=== PATIENT | male | born 1970 | race Caucasian/White ===

== ENCOUNTER 2017-12-10 07:10 | Day surgery (SDC) | payer OTHER ==
--- NOTE | 2017-12-10 07:29 | ED ---
Abdominal Pain/Male - HPI Summary HPI Summary: This pt is a 47 y/o male presenting to [facility] c/o sudden onset of right sided abd pain since 01:00 today. Pt reports his abd pain woke him up at 01:00 this morning. Pt states his pain is waxing and waning, currently rates it 7/10 in severity. He describes his abd pain as sharp. Denies fever, chills, nausea, vomiting, diarrhea, constipation, chest pain. His last bowel movement was yesterday afternoon without any difficulties or problems. Pt notes only SOB with worsening pain. He denies having pain similar to this in the past. Denies any past abdominal surgeries. Denies any PMHx. Pt does not take any medications on a daily basis. No tobacco or drug use. He endorses some alcohol use. - History of Current Complaint Chief Complaint: EDAbdPain Stated Complaint: ABD PAIN Hx Obtained From: Patient Onset/Duration: Sudden Onset, Lasting Hours, Still Present Timing: Lasting Hours Severity Currently: Moderate Pain Intensity: 7 Pain Scale Used: 0-10 Numeric Location: Other - right sided abd pain Radiates: No Aggravating Factor(s): Nothing Alleviating Factor(s): Nothing Associated Signs And Symptoms: Positive: Other - POS: SOB only with worsening pain. Negative: Fever, Chest Pain, Constipation, Nausea, Vomiting, Diarrhea - Allergies/Home Medications Allergies/Adverse Reactions: Allergies Allergy/AdvReac Type Severity Reaction Status Date / Time No Known Allergies Allergy Verified 12/10/17 07:14 PMH/Surg Hx/FS Hx/Imm Hx Endocrine/Hematology History: Denies: Hx Diabetes Cardiovascular History: Denies: Hx Hypertension Infectious Disease History: No Infectious Disease History: Denies: Traveled Outside the [place] in Last 30 Days - Family History Family History: breast cancer. mother with ovarian cancer - Social History Alcohol Use: Occasionally Substance Use Type: Reports: None Smoking Status (MU): Never Smoked Tobacco Review of Systems Negative: Fever, Chills Negative: Chest Pain Negative: Shortness Of Breath Positive: Abdominal Pain. Negative: Vomiting, Diarrhea, Nausea, Other - constipation All Other Systems Reviewed And Are Negative: Yes Physical Exam - Summary Physical Exam Summary: VITAL SIGNS: Reviewed. GENERAL: Patient is a well-developed and nourished male who is lying comfortable in the stretcher. Patient is not in any acute respiratory distress. HEAD AND FACE: Normocephalic and atraumatic. EYES: PERRLA, EOMI x 2, No injected conjunctiva. EARS: Hearing grossly intact. Ear canals and tympanic membranes are WNL. MOUTH: Oropharynx within normal limits. NECK: Supple, trachea is midline, no adenopathy, no JVD. CHEST: Symmetric, no tenderness at palpation LUNGS: Clear to auscultation bilaterally. No wheezing or crackles. CVS: RRR, S1 and S2 present, no murmurs or gallops appreciated. ABDOMEN: Soft, RUQ tenderness. No signs of distention. Positive bowel sounds. No rebound, no guarding, and no masses palpated. No abdominal bruit or pulsations. EXTREMITIES: FROM in all major joints, no edema, no cyanosis or clubbing. NEURO: Alert and oriented x 3. No acute neurological deficits. Speech is normal. SKIN: Dry and warm Triage Information Reviewed: Yes Vital Signs On Initial Exam: Initial Vitals Temp Pulse Resp BP Pulse Ox 98 F 70 16 142/92 99 12/10/17 07:12 12/10/17 07:12 12/10/17 07:12 12/10/17 07:12 12/10/17 07:12 Vital Signs Reviewed: Yes Diagnostics - Vital Signs Vital Signs Temp Pulse Resp BP Pulse Ox 12/10/17 07:12 98 F 70 16 142/92 99 - Laboratory Result Diagrams: 12/10/17 07:51 12/10/17 07:51 Lab Statement: Any lab studies that have been ordered have been reviewed, and results considered in the medical decision making process. - Ultrasound No standard instances Ultrasound Interpretation Completed By: Radiologist Summary of Ultrasound Findings: Gallbladder US IMPRESSION: Enlarged echogenic liver consistent with hepatic steatosis. Gallstone in the neck of the gallbladder without pericholecystic fluid. Dr. Acuna has reviewed this report. - EKG 07:59 Cardiac Rate: Bradycardia - at 59 bpm EKG Rhythm: Sinus Bradycardia Summary of EKG Findings: No ST elevations. Inverted T wave in aVL. Re-Evaluation - Re-Evaluation First Eval Re-Evaluation Time: 09:24 Change: Improved Comment: Pt is feeling better. Pain is rated 3 or 4 out of 10. No nausea or vomiting. Second Eval Re-Evaluation Time: 10:20 Comment: Dr. Poe will admit pt to surgery. Abdominal Pain Fem Course/Dx - Course Assessment/Plan: This pt is a 47 y/o male presenting to [facility] ED c/o sudden onset of abd pain since 01:00 today. Pt reports his abd pain woke him up at 01:00 this morning. Pt states his pain is waxing and waning, currently rates it 7/10 in severity. He describes his abd pain as sharp. Denies fever, chills, nausea, vomiting, diarrhea, constipation, chest pain. His last bowel movement was yesterday afternoon without any difficulties or problems. Pt notes only SOB with worsening pain. He denies having pain similar to this in the past. Denies any past abdominal surgeries. Denies any PMHx. Pt does not take any medications on a daily basis. No tobacco or drug use. He endorses some alcohol use. Blood work without any significant abnormality except for white blood cell count of 12.2, glucose 122, CRP is normal and LFTs are normal. Right upper quadrant ultrasound impression: Enlarged echogenic liver consistent with hepatic steatosis. Gallstones in the neck of the gallbladder without pericholecystic fluid. In the ED course the patient was given IV fluids, Zofran for nausea and morphine for the pain. After these medications he reports that the pain is only 3-4 out of 10, however he still has some right upper quadrant tenderness. I discussed the case with Dr. Poe, surgeon, who will consult for this patient. After his assessment he accepted the patient for admission for possible cholecystectomy. The patient continues to be hemodynamically stable. Patient is alert and oriented 3. - Diagnoses Differential Diagnosis/HQI/PQRI: Gall Bladder Disease, Hepatitis, Urinary Tract Infection Provider Diagnoses: Cholecystitis - Provider Notifications Discussed Care Of Patient With: Tommy Poe Time Discussed With Above Provider: 09:27 Instructed by Provider To: Other - I discussed with Dr. Poe, surgeon, who will come see the pt in the ED. Discharge - Sign-Out/Discharge Documenting (check all that apply): Patient Departure - Admit to [facility] surgery All imaging exams completed and their final reports reviewed: Yes - Discharge Plan Condition: Stable Disposition: ADMITTED TO [facility] - Billing Disposition and Condition Condition: STABLE Disposition: Admitted to [facility] - Attestation Statements Document Initiated by Scribe: Yes Documenting Scribe: Barbara Manzanares Provider For Whom Scribe is Documenting (Include Credential): Jarvis Acuna MD Scribe Attestation: I, Barbara Manzanares, scribed for Jarvis Acuna MD on 12/10/17 at 1819. Scribe Documentation Reviewed: Yes Provider Attestation: The documentation as recorded by the Barbara more accurately reflects the service I personally performed and the decisions made by me, Jarvis Acuna MD
[2017-12-10] MEDS ORDERED: Ondansetron INJ* 2 MG/ML VIAL IV ONE (07:37)
[2017-12-10] MEDS ORDERED: Morphine INJ* 4 MG/ML 1 ML SYRINGE (NEW SYRINGE VERSION) IV ONE (07:37)
[2017-12-10 08:07] LABS: ABS Basophils 0.1 10^3/ul (0-0.2); ABS Eosinophils 0 10^3/ul (0-0.6); ABS Lymphocytes 0.8 10^3/ul (1.0-4.8); ABS Monocytes 0.5 10^3/ul (0-0.8); ABS Neutrophils 10.8 10^3/ul (1.5-7.7); ABS Nucleated RBC 0 10^3/ul; Eosinophil % 0.1 % (0-6); Hematocrit 48 % (42-52); Hemoglobin 16.6 g/dl (14.0-18.0); Lymphocyte % 6.2 % (25-47); Mean Corpuscular HGB Conc 35 g/dl (31-36); Mean Corpuscular Hemoglobin 30 pg (27-31); Mean Corpuscular Volume 87 fL (80-94); Nucleated Red Blood Cells % 0.1; Platelet Count 253 10^3/ul (150-450); Red Blood Count 5.52 10^6/ul (4.00-5.40); Red Cell Distribution Width 13 % (10.5-15); White Blood Count 12.2 10^3/ul (3.5-10.8)
[2017-12-10 08:16] LABS: EGFR Non-African American 66.5 (>60)
--- NOTE | 2017-12-10 09:19 | RAD ---
Indication: Right upper quadrant pain. Real-time sonography of the right upper quadrant was performed. Liver is mildly enlarged measuring 18.5 cm in length. It is diffusely increased in echogenicity consistent with hepatic steatosis.No intrahepatic duct dilatation is noted. The gallbladder demonstrates gallstones in the neck. No pericholecystic fluid or wall thickening is noted. The common duct measures up to 0.4 cm. The right kidney measures 11.4 x 5.0 x 5.9 cm with no hydronephrosis. The pancreas head, neck and proximal body demonstrate no mass or pancreatic duct dilatation. Aorta and inferior vena cava are unremarkable. IMPRESSION: Enlarged echogenic liver consistent with hepatic steatosis. Gallstone in the neck of the gallbladder without pericholecystic fluid.
[2017-12-10] MEDS ORDERED: Morphine INJ** 4 MG/ML 1 ML CARPUJECT IV PRN (10:32)
[2017-12-10] MEDS ORDERED: Ondansetron INJ* 2 MG/ML VIAL IV PRN (10:33)
[2017-12-10] MEDS ORDERED: ceFAZolin 2 GM PREMIX in ORs 2 GM/50 ML BAG IVPB ONE ×2 (10:37→12:51)
--- NOTE | 2017-12-10 10:59 | HP ---
AMENDED REPORT NOW INCLUDES DESIGNATED COSIGNER CC: Lelo Lopez NP, [facility]* DATE OF ADMISSION: 12/10/2017. The patient was seen for initial evaluation in the ED. ATTENDING SURGEON: Dr. Tommy Poe * (NAVIN Rich dictating). CHIEF COMPLAINT: Abdominal pain. HISTORY OF PRESENT ILLNESS: This is a generally healthy, 47-year-old male who was awakened this morning at 1 o'clock with severe epigastric and right upper quadrant pain. He describes the pain as sharp with peaks and associated pressure, as well as nausea, though no vomiting. He denies fever or chills. Pain at its peak was as high as 10/10 and at present is down to 4 to 5/10 after one dose of Morphine 4 mg. He has not had any prior similar symptoms. He he had a normal bowel movement yesterday. He did take some Pepto Bismol with no relief. There is no known family history of gallbladder disease. He has not had any prior abdominal surgeries. He states he has not noticed any changes in his urine. PAST MEDICAL HISTORY: He is obese. No significant past or current medical problems reported. PAST SURGICAL HISTORY: His only previous surgery is dental work with no complications noted. CURRENT MEDICATIONS: None, including [id number] and supplements. DRUG ALLERGIES: None known. FAMILY HISTORY: Negative for anesthesia problems, bleeding or clotting disorders. SOCIAL HISTORY: The patient is and his is present. He works as a dedicated intermodal truck driver and deliverer. He quit smoking five years ago. He drinks on average one drink per day. He denies any other recreational drug use. REVIEW OF SYSTEMS: General: No recent constitutional symptoms or acute illnesses other than per the HPI. His weight has been stable. HEENT: No problems reported, other than dry mouth. Cardiovascular: No chest pain, palpitations, history of heart murmur. Respiratory: No history of asthma, chronic cough, or shortness of breath. GI: As above per HPI. : No additional symptoms reported. Endocrine: No diabetes or thyroid dysfunction. Remainder of review of systems is negative. PHYSICAL EXAMINATION GENERAL: Well-nourished, somewhat obese male in no acute distress. SKIN: Warm and dry, no suspicious rashes or lesions. VITAL SIGNS: Height 6'2", weight 290 pounds, BMI 37. Temperature 98, blood pressure 131/83, pulse 65, respirations 16, room air saturation 96 percent. HEENT: Pupils equal and round, reactive. EOM's intact. No conjunctival pallor or scleral icterus. Oropharynx: Teeth in good repair. No intraoral lesions. Mucus membranes slightly dry. NECK: No lymphadenopathy, thyromegaly, or masses. LUNGS: Clear to auscultation. No wheezes. HEART: Regular rate and rhythm. No murmur noted. ABDOMEN: Bowel sounds present, but somewhat hypoactive. Possibly mildly distended. Soft with moderate tenderness in the right upper quadrant with positive Mayes sign. No palpable masses or organomegaly, though exam is limited by body habitus and tenderness. No palpable groin hernias. BACK: No spinous process or CVA tenderness. EXTREMITIES: No edema. GENITALIA: Not otherwise examined. RECTAL: Not done. NEUROLOGIC: Grossly intact. LABORATORY DATA: Laboratory reviewed, including mildly elevated white blood cell count at 12,200 with left shift. His chemistries are essentially normal, including CMP, amylase, lipase, and CRP. His glucose was 122, lactic acid is normal at 1.9. Ultrasound of the right upper quadrant does show gallstones as well as mild hepatomegaly and mild fatty changes. There is no gallbladder wall thickening or pericholecystic fluid. The common bile duct is normal at 0.4 cm. IMPRESSION: Acute biliary colic with persistent pain. PLAN: Admission for pain control and IV hydration; likely cholecystectomy later today pending review of findings with the attending surgery, Dr. Poe. NAVIN RICH [id number]/[facility] #: [id number] MTDSharad
[2017-12-10] MEDS ORDERED: Bupivacaine 0.25% W/EPI* 10 ML SDV ONE (12:36)
[2017-12-10] MEDS ORDERED: ceFAZolin 1 GM in Dextrose (*) 1 GM/50 ML BAG IVPB ONE (12:51)
[2017-12-10] MEDS ORDERED: Midazolam* 1 MG/ML 2 ML VIAL (2 MG) ONE (13:19)
[2017-12-10] MEDS ORDERED: fentaNYL* 50 MCG/ML 2 ML VIAL (100 MCG VIAL) ONE ×2 (13:19→14:47)
[2017-12-10] MEDS ORDERED: Dexamethasone IV* 4 MG/ML 1 ML (4 MG) ONE (13:46)
[2017-12-10] MEDS ORDERED: Ondansetron INJ* 2 MG/ML VIAL ONE (13:46)
[2017-12-10] MEDS ORDERED: Propofol* 10 MG/ML 20 ML BTL IV PUSH ONE (13:46)
[2017-12-10] MEDS ORDERED: Succinylcholine* 20 MG/ML 10 ML VIAL ONE (13:46)
[2017-12-10] MEDS ORDERED: Phenylephrine INJ* 10 MG/ML 1 ML VIAL (10 MG) ONE (13:46)
[2017-12-10] MEDS ORDERED: Lidocaine 2% PF * 5 ML VIAL ONE (13:46)
[2017-12-10] MEDS ORDERED: EPHEDrine (Pressors)* 50 MG/ML VIAL ONE (13:59)
[2017-12-10] MEDS ORDERED: Cisatracurium* 2 MG/ML MDV 5 ML ONE (14:12)
--- NOTE | 2017-12-10 15:13 | OP ---
Operative Report - Blank - Operative Report Date of Operation: 12/10/17 Note: Brief Operative Note Preop Dx: acute cholecystitis Postop Dx: same Procedure: laparoscopic cholecystectomy Anesthesia: GET Surgeon: Lui Cabin Equipment Supervisor: NAVIN Duran Fluids: 1400 ml RL EBL: < 50 ml Specimen: gallbladder Drains: none Findings: dictated
[2017-12-10] MEDS ORDERED: Acetaminophen TAB* 325 MG PO PRN (15:17)
[2017-12-10] MEDS ORDERED: Naloxone* 0.4 MG/ML 1 ML VIAL IV PRN (15:17)
[2017-12-10] MEDS ORDERED: fentaNYL* 50 MCG/ML 2 ML VIAL (100 MCG VIAL) IV PRN (15:17)
[2017-12-10] MEDS ORDERED: HYDROmorphone INJ1* 1 MG/ML SYRINGE IV PRN (15:17)
[2017-12-10 17:03] VITALS: BP 104/71
--- NOTE | 2017-12-11 07:57 | OP ---
DATE OF OPERATION: 12/10/17 - [facility] DATE OF : 68 SURGEON: Tommy Poe MD CUPOLA TAPPER HELPER: NAVIN Membreno ANESTHESIOLOGIST: Dr. Solares. ANESTHESIA: General with local. PRE-OP DIAGNOSIS: Acute calculous cholecystitis. POST-OP DIAGNOSIS: Acute calculous cholecystitis. OPERATIVE PROCEDURE: Laparoscopic cholecystectomy. IV FLUIDS: 1.5 L of crystalloid. SPECIMENS: Gallbladder. WOUND CLASSIFICATION: 3. COMPLICATIONS: None. DRAINS: None. FINDINGS: Acute edematous calculous cholecystitis. BRIEF HISTORY: Mr. Shaw Qiu is a 47-year-old gentleman who presented to the emergency room with 12 hours of severe epigastric and right upper quadrant abdominal pain without fever. His pain did not improve with analgesia and he was noted to have a white blood cell count of 12,000. An ultrasound showed gallstones in the neck of the gallbladder with concern for possible thickening of the gallbladder wall. Clinically, he is diagnosed with acute calculous cholecystitis and now being taken to the operating room for cholecystectomy. The procedure was discussed with the patient and his and the risks of but not limited to bleeding, infection, intraabdominal abscess formation, injury to peritoneal and retroperitoneal structures, common bile duct injury requiring further reconstruction, and a possibility of an open procedure, the risks of anesthesia, blood clots, and recovery time were discussed. DESCRIPTION OF PROCEDURE: Written informed consent was obtained, the abdomen was marked with indelible ink and preoperative antibiotics were administered. The patient was taken to the operating room and placed in the supine position. Sequential compression devices and warming blanket were applied. General anesthesia was administered. The abdomen was prepped and draped in the usual sterile fashion. A time-out verification was completed. A small transverse incision was made just above the umbilicus and the peritoneal cavity was entered under direct vision. A 12-mm blunt port was inserted and the abdomen was insufflated to 15 mmHg. Under direct vision, an 11-mm epigastric port was placed and two 5-mm ports were placed in the right side of the abdominal wall. The gallbladder was identified. There was omentum which was adherent to it and edema in the right upper quadrant. There was also some fatty infiltration of the gallbladder wall, which was quite edematous. Once I was able to remove the omentum and swept this down off the gallbladder where I was able to identify the gallbladder. It was edematous wall with some pericholecystic fluid and edema, all consistent with acute calculous cholecystitis. With care, the cystic duct was identified as it entered the gallbladder. I did not identify a single cystic artery; however, I did take a significant portion in the inferior part of the gallbladder off the liver bed using the critical view technique to assure myself that this was indeed the cystic duct and the only duct that entered the gallbladder. The cystic duct was then triply clipped and divided. The gallbladder was removed from the liver bed with electrocautery and placed in EndoCatch bag and brought out through the umbilical incision. No gallstones were spilled and the right upper quadrant was irrigated thoroughly with saline. Hemostasis was assured. All ports were removed under direct vision of the camera. The umbilical fascia was closed with an interrupted 0 Vicryl suture. The skin was approximated with subcuticular 4-0 Vicryl suture. Steri-Strips were applied. The patient tolerated the procedure well and was taken to the recovery room in stable condition. [id number]/[facility] #: [id number] IVY
== END 2017-12-10 17:13 | disposition home or self-care (01) ==
LOC: ED 07:10 → OR 10:36
PROVIDERS: ATTEND Surgery
DX: K80.12 Calculus of gallbladder with acute and chronic cholecystitis without obstruction (principal); R10.11 Right upper quadrant pain; R06.02 Shortness of breath; Z87.891 Personal history of nicotine dependence
CPT/HCPCS: 36415; 76705; 80053; 82150; 83605; 83690; 84484; 85025; 86140; 88304; 93005; 96374; 96375; 99284; J0330; J0690; J1100; J2250; J2270; J2405; J2704; J3010